=== PATIENT | male | born 1970 | race African-American/Black ===

== ENCOUNTER 2018-06-18 15:56 | Emergency (ER) | payer OTHER ==
[~2018-06-18] VITALS: Ht 162.6 cm; Wt 49.9 kg
[2018-06-18 16:21] VITALS: BP 155/95
[2018-06-18 17:58] LABS: BILIRUBIN,URINE NEGATIVE (NEG); CLARITY,URINE CLEAR; COLOR,URINE YELLOW; NITRITE,URINE NEGATIVE (NEG); PH,URINE 7.5; PROTEIN,URINE NEGATIVE (NEG-TRACE)
[2018-06-18 18:05] LABS: BACTERIA,URINE 0 /HPF (0-FEW); SQUAMOUS EPITHELIAL CELL,UR OCC /LPF; WBC,URINE 0 /HPF (0-4)
--- NOTE | 2018-06-18 18:54 | PHYS DOC ---
Past Medical History Past Medical History: Other Past Surgical History: No Surgical History Alcohol Use: None Drug Use: None Adult General Chief Complaint Chief Complaint: FLANK PAIN HPI HPI Patient is a 48 year old AA male who presents to the ER accompanied by his mother. Per pt's mother patient is non-verbal due to cerebral palsy and cognitive delay. She reports that patient has been moaning more and favoring his left side today. Mother reports concern because patient recently finished antibiotics for a urinary tract infection. Mother also states at that time he was prescribed some Debrox ear drops for cerumen impaction bilaterally. She denies any fever, nausea, vomiting, or diarrhea. She states that the patient last had a bowel movement yesterday and has not had one today. Mother denies any blood in urine or stool recently. Review of Systems Review of Systems unable to assess Current Medications Current Medications Current Medications Medications (Trade) Dose Ordered Sig/Galileo Start Time Stop Time Status Last Admin Dose Admin Magnesium Citrate (Citroma) 296 ml 1X ONCE 06/18/18 19:15 06/18/18 19:16 DC 06/18/18 19:21 296 ML Allergies Allergies Allergies Coded Allergies Type Severity Reaction Last Updated Verified No Known Medication Allergies Allergy Unknown 06/18/18 Yes Uncoded Allergies Type Severity Reaction Last Updated Verified red sauce Adverse Reaction Unknown 06/18/18 Physical Exam Physical Exam Constitutional: Well developed, well nourished, no acute distress, non-toxic appearance. [] HENT: Normocephalic, atraumatic, bilateral external ears normal, bilateral TMs impacted cerumen, oropharynx moist, nose normal. [] Eyes: conjunctiva normal, no discharge. [] Neck: Normal range of motion, no stridor. [] Cardiovascular:Heart rate regular rhythm, no murmur [] Lungs & Thorax: Bilateral breath sounds clear to auscultation [] Abdomen: Bowel sounds normal, soft, no tenderness, no masses, no pulsatile masses. [] Skin: Warm, dry, no erythema, no rash. [] Back: No CVA tenderness. [] Neurologic: Alert and oriented to normal status Psychologic: Affect agitated, mood and judgement normal for patient. Current Patient Data Vital Signs Vital Signs Date Time Temp Pulse Resp B/P (MAP) Pulse Ox O2 Delivery O2 Flow Rate FiO2 06/18/18 16:21 96.9 104 22 155/95 (115) 95 Room Air 96.9 Lab Values Laboratory Tests Test 06/18/18 17:48 Urine Collection Type U cath Urine Color Yellow Urine Clarity Clear Urine pH 7.5 Urine Specific [place] 1.025 Urine Protein Negative mg/dL (NEG-TRACE) Urine Glucose (UA) Negative mg/dL (NEG) Urine Ketones (Stick) Negative mg/dL (NEG) Urine Blood Negative (NEG) Urine Nitrite Negative (NEG) Urine Bilirubin Negative (NEG) Urine Urobilinogen Dipstick 1.0 mg/dL (0.2 mg/dL) Urine Leukocyte Esterase Negative (NEG) Urine RBC 3-5 /HPF (0-2) Urine WBC 0 /HPF (0-4) Urine Squamous Epithelial Cells Occ /LPF Urine Bacteria 0 /HPF (0-FEW) Urine Mucus Slight /LPF EKG EKG [] Radiology/Procedures Radiology/Procedures Moderate stool present no obstruction read by Dr. Leroy. [] Course & Med Decision Making Course & Med Decision Making Pertinent Labs and Imaging studies reviewed. (See chart for details) Dx: Constipation Mother was informed of resolved urinary tract infection. A CT abdomen pelvis was suggested but declined by mother as patient would not tolerate the test, advised mother of small amount of blood present in urine may be due to kidney stone, if symptoms persist would recommend further evaluation for kidney stone. Pt was given 1/2 bottle of magnesium citrate in the ER and mother was instructed to give pt 1 capful of miralax daily to help constipation resolve. Follow up with PCP this week, return to ER if sx worsen. Patient's mother verbalized an understanding of home care, medications, follow-up, and return to ED instructions and was in agreement with the plan of care. [] Dragon Disclaimer Dragon Disclaimer This electronic medical record was generated, in whole or in part, using a voice recognition dictation system. Departure Departure Impression: Primary Impression: Constipation Disposition: HOME, SELF-CARE Condition: STABLE Referrals: NAS WALKER MD (PCP) Patient Instructions: Constipation, Adult, [id number] Additional Instructions: Give patient 1 capful of Miralax daily. Follow up with primary care doctor if symptoms persist, return to the ER if symptoms worsen. Problem Qualifiers Primary Impression: Constipation Constipation type: unspecified constipation type Qualified Codes: K59.00 - Constipation, unspecified CATARINA SAHA FACE BURLER Jun 18, 2018 18:54
[2018-06-18] MEDS ORDERED: MAGNESIUM CITRATE 296 ML SOLUTION. PO ONE (19:15)
--- NOTE | 2018-06-19 00:10 | RAD ---
EXAM: Supine AP view of the abdomen DATE: 06/18/2018 6:31 PM INDICATION: CONSTIPATION COMPARISON: No Prior FINDINGS: No abnormal small or large bowel dilatation. Moderate colonic stool content. No abnormal soft tissue mass effect. No suspicious calcifications are seen. Evaluation for free intraperitoneal gas is limited on this supine exam. IMPRESSION: 1. No evidence for bowel obstruction. 2. Moderate colonic stool content is seen. Electronically signed by: Cm Aguirre MD (06/19/2018 12:08 AM) [facility]
== END 2018-06-18 19:15 | disposition home or self-care (01) ==
LOC: ER 15:56
DX: K59.00 Constipation, unspecified (principal); G80.9 Cerebral palsy, unspecified; Z87.440 Personal history of urinary (tract) infections; Z91.018 Allergy to other foods
CPT/HCPCS: 51701; 74018; 81001; 99284-25